=== PATIENT | male | born 1950 | race Caucasian/White ===

== ENCOUNTER 2018-12-27 13:21 | Emergency (ER) | payer OTHER ==
[~2018-12-27] VITALS: Ht 180.3 cm; Wt 81.7 kg
[2018-12-27] MEDS ORDERED: IBUPROFEN 400400 M2 PO (15:22)
[2018-12-27 15:29] VITALS: BP 165/106
== END 2018-12-27 15:45 | disposition home or self-care (01) ==
LOC: EDBD 13:21 → ER 13:21
DX: S42.031A Displaced fracture of lateral end of right clavicle, initial encounter for closed fracture (principal); F17.200 Nicotine dependence, unspecified, uncomplicated; I10 Essential (primary) hypertension; E78.00 Pure hypercholesterolemia, unspecified; W10.9XXA Fall (on) (from) unspecified stairs and steps, initial encounter; Y92.89 Other specified places as the place of occurrence of the external cause; Y93.89 Activity, other specified; Y99.8 Other external cause status